=== PATIENT | male | born 1940 | race Hispanic/Latino ===

== ENCOUNTER 2021-01-08 15:58 | Emergency (ER) | payer OTHER, SELFPAY ==
[2021-01-08 16:11] VITALS: BP 169/59; PULSE 50; RESP 18; TEMP 36.1; O2SAT 100
--- NOTE | 2021-01-08 16:25 | ED.GENADULT ---
HPI - General Adult General Chief complaint: Abdominal Pain Stated complaint: consitpation Time Seen by Provider: 01/08/21 16:25 Source: patient, family, RN notes reviewed and old records reviewed Mode of arrival: ambulatory Limitations: language barrier and other (son as vehicle and equipment cleaner) History of Present Illness HPI narrative: 80 year old male who [facility] accompanied by son with complaints of having pain with bowel movements and he saw his doctor and he was given hydrocortisone and nystatin ointment to apply to area with really no improvement in complaints. Patient 's son states that father has appointment to return to see his doctor on the 19 of January but didn't feel he could wait that long. Patient reports that he has no abdominal pain, nausea or vomiting or any evidence of blood in his stool or having to strain with stools. Son acting as vehicle and equipment cleaner patient speaks Faroese complaint: pain with BM Onset (ago): week(s) (2) Location: buttocks Radiation: non-radiation Related Data Home Medications Medication Instructions Recorded Confirmed docusate sodium [Stool Softener] PO 01/08/21 hydrocortisone 01/08/21 metoprolol tartrate 01/08/21 nystatin TOPICAL 01/08/21 polyethylene glycol 3350 01/08/21 tamsulosin mg PO 01/08/21 Allergies Allergy/AdvReac Type Severity Reaction Status Date / Time No Known Allergies Allergy Unverified 12/03/17 17:39 Review of Systems Review of Systems: CONSTITUTIONAL: Denies fever, chills, or sweats. EYES: Denies visual changes, redness, or discharge. ENT: Denies rhinorrhea, congestion, sore throat, or otalgia. CARDIOVASCULAR: Denies chest pain, palpitations, or edema. RESPIRATORY: Denies cough or dyspnea. GASTROINTESTINAL: Denies abdominal pain, nausea, vomiting, or diarrhea, reports pain with bowel movements GENITOURINARY: Denies dysuria or hematuria. SKIN: Denies rash or itching. MUSCULOSKELETAL: Denies back pain, joint pain, or myalgia. NEUROLOGIC: Denies headache, numbness, or weakness. PSYCHIATRIC: Denies anxiety or depression. All systems reviewed & are unremarkable except as noted in HPI and below PMFSH Past Medical History Medical History (Updated 01/09/21 @ 00:01 by Luis Carlos Lou) Diabetes Elevated cholesterol Gout Hypertension Surgical History Surgical History (Updated 01/08/21 @ 17:26 by Priscilla Cordero NP) History of total right knee replacement Family History Family History (Updated 01/08/21 @ 17:27 by Priscilla Cordero NP) Father Acute myocardial infarction Mother Diabetes mellitus Sibling Diabetes mellitus Other Heart disease Social History Social History (Updated 01/08/21 @ 17:27 by Priscilla Cordero NP) Smoking status: Former smoker Alcohol intake: former Substance use: never Living arrangements: with family Gender identity (if verbalized by the patient): Male Comments At time of signature, agree with nursing past medical, surgical, social and family history. There is no relevant family history pertinent to the presenting complaint Exam Narrative: GENERAL: Well-appearing, well-nourished, and in no acute distress. HEAD: Normocephalic, atraumatic. EYES: PERRLA and EOMI. ENT: Nares clear, no rhinorrhea or epistaxis. Mucous membranes moist. NECK: Supple.no lymphadenopathy CHEST: Clear to auscultation. No respiratory distress.SAO2 100% on room air HEART: Regular rate and rhythm. No murmur heard. Normal peripheral pulses. ABDOMEN: Soft, nontender on palpation, nondistended, normal active bowel sounds. tender internal raised area to rectum on exam no external hemorrhoids visualized or any evidence of rectal fissure. denies any recent constipation, states no blood noted in stool. EXTREMITIES: Normal range of motion. No edema. SKIN: Warm, dry, no rash. NEURO: No focal deficits. Alert and oriented x3. Course Vital Signs Vital signs: Vital Signs Temperature 36.1 C L 01/08/21 16:11 Pulse Rate 50
== END 2021-01-08 16:57 | disposition home or self-care (01) ==
PROVIDERS: Emergency Provider Registered Nurse
DX: K62.89 Other specified diseases of anus and rectum (principal); Z87.891 Personal history of nicotine dependence; E11.9 Type 2 diabetes mellitus without complications; E78.00 Pure hypercholesterolemia, unspecified; M10.9 Gout, unspecified; I10 Essential (primary) hypertension; Z96.651 Presence of right artificial knee joint
CPT/HCPCS: 99213; G0463